=== PATIENT | male | born 1965 | race Caucasian/White ===

== ENCOUNTER 2020-10-11 07:17 | Emergency (ER) | payer OTHER ==
[~2020-10-11] VITALS: Ht 177.8 cm; Wt 93.4 kg
[2020-10-11 07:27] VITALS: Ht 177.8 cm; Wt 93.4 kg
[2020-10-11 08:11] VITALS: BP 156/90
== END 2020-10-11 08:11 | disposition home or self-care (01) ==
LOC: ED 07:17
DX: T16.2XXA Foreign body in left ear, initial encounter (principal); I10 Essential (primary) hypertension; E11.9 Type 2 diabetes mellitus without complications; Z88.0 Allergy status to penicillin; W45.8XXA Other foreign body or object entering through skin, initial encounter; Y93.89 Activity, other specified; Y92.89 Other specified places as the place of occurrence of the external cause; Y99.8 Other external cause status